=== PATIENT | male | born 1985 | race Caucasian/White ===

== ENCOUNTER 2024-03-04 07:43 | Emergency (ER) | payer OTHER ==
[~2024-03-04] VITALS: Ht 172.7 cm; Wt 115.7 kg
[2024-03-04 08:07] VITALS: BP 128/79; PULSE 85; RESP 18; TEMP 97; O2SAT 96
[2024-03-04 09:09] VITALS: BP 120/76; PULSE 80; RESP 18; TEMP 97; O2SAT 96
== END 2024-03-04 09:01 | disposition home or self-care (01) ==
LOC: MED 07:43
DX: M79.671 Pain in right foot (principal)
CPT/HCPCS: 73630; 99283